=== PATIENT | male | born 1935 | race Hispanic/Latino ===

== ENCOUNTER 2018-02-10 05:52 | Day surgery (SDC) | payer MEDICARE ==
[~2018-02-10] VITALS: Ht 175.3 cm; Wt 73.4 kg
[~2018-02-10 05:52] MED LIST: ALEN70TA47 PO; AMLO10TA2 PO; ASCO500C18 PO; CLON0.1T PO; FERR-82 PO; FINA5TAB41 PO; LOSA1TAB54 PO; MULT-1259 PO; OMEP20TA25 PO; SODIUM CHLORIDE 0.9% 1000ML 1,000 ML IV ONE
[2018-02-10 06:00] VITALS: BP 178/77
[2018-02-10] MEDS ORDERED: PROPOFOL 10 MG/ML 20ML VIAL IV ONE ×2 (07:27)
[2018-02-10 07:36] VITALS: BP 138/46
== END 2018-02-10 08:20 | disposition home or self-care (01) ==
LOC: DAH 05:52
PROVIDERS: ATTEND Internal Medicine Gastroenterology
DX: K29.50 Unspecified chronic gastritis without bleeding (principal); D50.9 Iron deficiency anemia, unspecified; K59.01 Slow transit constipation; I10 Essential (primary) hypertension; K57.30 Diverticulosis of large intestine without perforation or abscess without bleeding; R00.1 Bradycardia, unspecified; Z79.899 Other long term (current) drug therapy; I44.0 Atrioventricular block, first degree
CPT/HCPCS: 43239; 88305; 88312; 93005; A4606; J2704 ×2; J7030

== ENCOUNTER 2019-07-04 05:30 | Day surgery (SDC) | payer MEDICARE ==
[~2019-07-04] VITALS: Ht 172.7 cm; Wt 80.7 kg
[2019-07-04] MEDS ORDERED: SODIUM CHLORIDE 0.9% 1000ML 1,000 ML IV ONE (05:45)
[2019-07-04 06:28] VITALS: BP 150/42
[2019-07-04] MEDS ORDERED: PROPOFOL 10 MG/ML 20ML VIAL IV ONE ×2 (06:53)
[2019-07-04 07:07] VITALS: BP 133/35
[2019-07-04 07:12] VITALS: BP 135/38
[2019-07-04 07:17] VITALS: BP 138/42
[2019-07-04 07:25] VITALS: BP 134/42
== END 2019-07-04 08:44 | disposition home or self-care (01) ==
LOC: ENDO 05:30 → DAH 05:30 → ENDO 07:35
PROVIDERS: ATTEND Internal Medicine Gastroenterology
DX: D50.9 Iron deficiency anemia, unspecified (principal); K57.30 Diverticulosis of large intestine without perforation or abscess without bleeding; I10 Essential (primary) hypertension; E03.9 Hypothyroidism, unspecified; E78.5 Hyperlipidemia, unspecified; Z90.49 Acquired absence of other specified parts of digestive tract; Z98.890 Other specified postprocedural states; Z95.818 Presence of other cardiac implants and grafts; Z79.899 Other long term (current) drug therapy; Z79.82 Long term (current) use of aspirin; Z82.49 Family history of ischemic heart disease and other diseases of the circulatory system; Z83.3 Family history of diabetes mellitus
CPT/HCPCS: 45378; A4215; A4221; A4222; A4223; A4606; A4615; A4663; J2704 ×2; J7030